=== PATIENT | female | born 1935 ===

== ENCOUNTER 2021-09-11 12:44 | Outpatient (RCR) | payer MEDICARE, OTHER, SELFPAY | END 2021-09-23 09:24 | disposition home or self-care (01) | LOC: HO.WCC 12:44 | PROVIDERS: PCP Internal Medicine; Visit Provider Surgery | DX: Z09 Encounter for follow-up examination after completed treatment for conditions other than malignant neoplasm (principal); S81.812D Laceration without foreign body, left lower leg, subsequent encounter; I10 Essential (primary) hypertension; Z87.891 Personal history of nicotine dependence; Z92.3 Personal history of irradiation; Z95.2 Presence of prosthetic heart valve | CPT/HCPCS: 99213 ==

== ENCOUNTER 2021-09-23 12:07 | Emergency (ER) | payer MEDICARE, OTHER, SELFPAY ==
[2021-09-23 13:27] VITALS: BP 119/52; PULSE 78; RESP 16; TEMP 36.7; O2SAT 95; BMI 34.2
--- NOTE | 2021-09-23 13:37 | ED_ITS ---
HPI - Animal Bite General Chief Complaint: Animal Bite Stated Complaint: Dog bite Time Seen by Provider: 09/23/21 13:27 Source: patient Mode of arrival: ambulatory Limitations: no limitations History of Present Illness HPI narrative: Patient comes to the emergency room complaining of a dog bite to the left forearm. Patient states that the dog is her daughter's. Patient states that she dropped pills on the floor, patient was about to eat the medications. Therefore, she pushed the dog out of the way to avoid the dog from eating the pills. The dog turned and bit the patient. The patient and her daughter rep orts that the dog has bitten people before including the patient. Patient states that she is up-to-date with her tetanus shot. Related Data Previous Rx's Medication Instructions Recorded amoxicillin 500 mg-potassium 1 tab PO BID #14 tab 09/23/21 clavulanate 125 mg tablet (Augmentin) Allergies Allergy/AdvReac Type Severity Reaction Status Date / Time No Known Allergies Allergy Unverified 03/15/20 16:58 [No Known Allergies*] Review of Systems Review of Systems: Constitutional : No Weight loss, No Fever, No Chills, No Night Sweats, No Fatigue, No Malaise ENT/Mouth : No Hearing loss, No Ear Pain, No Nasal Congestion, No Sinus Pain, No Hoarseness, No sore throat, No Rhinorrhea, No Swallowing Difficulty Eyes: No Eye Pain, No Swelling, No Redness, No Foreign Body, No Discharge, No Vision Changes Cardiovascular : No Chest Pain, No SOB, No Dyspnea on Exertion, No Orthopnea, No Edema, No Palpitations Respiratory : No Cough, No Sputum, No Wheezing, No Smoke Exposure, No Dyspnea Gastrointestinal : No Nausea, No Vomiting, No Diarrhea, No Constipation, No abdominal Pain, No Hematochezia, No Melena Genitourinary : no irregular bleeding, No Dysuria, No Urinary Frequency, No Hematuria, No Urinary Incontinence, No Urgency, No Flank Pain, No Urinary Flow Changes, No Hesitancy Musculoskeletal : No joint pain, No Myalgias, No Joint Swelling Skin : Dog bite on the anterior and posterior aspect of the left forearm Neuro : No Weakness, No Numbness, No Paresthesias, No Loss of Consciousness, No Dizziness, No Headache Psych : No Anxiety/Panic, No Depression, No SI/HI/AH/VH, No Social Issues, Heme/Lymph: No Bruising, No Bleeding,No Lymphadenopathy Endocrine : No Polyuria, No Polydipsia, No Temperature Intolerance [facility] Past Medical History Medical History Atrial fibrillation Bladder cancer Sciatica Surgical History Heart valve replaced Social History Social History Advance Directives: No Advance Directives Information Provided: No Physical Exam ED Vital Signs: Vital Signs - 24 hr 09/23/21 13:27 Temperature 98.0 F Pulse Rate 78 Respiratory Rate 16 Blood Pressure 119/52 L Pulse Oximetry 95 BMI result Body Mass Index 34.2 Const Other: Appearance: Alert. Oriented X3. No acute distress. Eyes: Pupils equal, round and reactive to light. ENT: Pharynx normal. Hard of hearing Neck: Normal inspection. Neck supple. No lymph nodes noted. No crepitus CVS: Normal heart rate and rhythm. Pulses normal. Normal S1 and S2 Respiratory: No respiratory distress. Breath sounds normal. No Wheezing. No rales Abdomen: Soft and nontender. No rigidity. No distention. Skin: Skin warm and dry. On the anterior aspect of the left forearm there is a 6 cm dog bite, muscle is visible, does not penetrate the muscle. There is a small hematoma underneath the muscle. On the dorsal aspect there are multiple skin tears Extremities: No lower extremity edema. No Lacerations. No Rash. Patient is able to open and close all fingers in the hand, flex extend, abduct and abduct. The bite does not affect tendons, did not penetrate the muscle tissue Neuro: Oriented X 3. No motor deficit. No sensory deficit. Moving all e xtremities. No slurred speech. CN 2 through 12 grossly intact Psych: calm, cooperative, normal affect Course Course Course Narrative: I discussed with the patient that usually dog bites should not be sutured due to the risk of infection. However, the laceration is extensive. we are going to apply sutures with enough spaces for the wound to drain. Patient's arm was thoroughly rinsed with normal saline and Betadine. Three nonabsorbable sutures were applied. Three absorbable sutures were applied to the muscle . The muscle was covered with the skin flap which was not sutured. Only covered and Steri-Strips were placed. The dorsal aspect of the arm was covered with Steri-Strips, with enough space to allow drainage. Patient was given the 1st dose of Augmentin in the emergency room. Patient states she is up-to-date with her Tdap Procedures Laceration Laceration 1: Site: upper extremity Side (If applicable): right Size (cm): 6 Description: linear, flap, irregular and contaminated Depth: simple, single layer Local Anesthetic: lidocaine 2% and with epi Amount of anesthesia used (mL): 10 Pre-repair: wound explored, irrigated extensively and deep structures intact Skin layer closed with: nylon Size (cm): 3-0 Number of sutures: 3 Technique: simple, interrupted Subcutaneous layer closed with: vicryl Size: 3-0 Number of sutures: 3 Technique: simple, interrupted Size: 3-0 Discharge Plan Discharge Clinical Impression: Dog bite Patient Disposition: Home, Self-Care Instructions: Animal Bite (ED) Additional Instructions: The exterior sutures need to be removed in 7-10 days. The sutures underneath the skin flap will self resolve. If you see any signs of infection such as redness, pus drainage, significant pain, fever chills, please return to the emergency room. Please follow-up with your primary care physician tomorrow. If you have any worsening or new symptoms, please return to the emergency room or call 911 Prescriptions: New amoxicillin-pot clavulanate [Augmentin] 500-125 mg tablet 1 tab PO BID Qty: 14 0RF
[2021-09-23] MEDS: Lidocaine HCl 1%/Epi 1:100,000 20 ML VIAL INFILTRATI (13:45)
[2021-09-23] MEDS: Amoxicillin/Potassium Clav 875 MG TABLET PO (13:45)
--- NOTE | 2021-09-23 14:50 | PC.NURSE ---
LEFT FOREARM ANTERIOR AND POSTERIOR OPEN WOUND FROM DOG BITE, MD IRIZARRY USED SUTURES AND STERI STRIPS AFTER CLEANING OUT WOUNDS, NON STICK DRESSING APPLIED OVER BOTH SIDES OF LEFT FOREARM AND WRAPPED WITH GAUZE.
== END 2021-09-23 14:54 | disposition home or self-care (01) ==
PROVIDERS: Emergency Provider Emergency Medicine; PCP Internal Medicine
DX: S51.852A Open bite of left forearm, initial encounter (principal); W54.0XXA Bitten by dog, initial encounter; Y93.89 Activity, other specified; Y92.009 Unspecified place in unspecified non-institutional (private) residence as the place of occurrence of the external cause; Y99.9 Unspecified external cause status
CPT/HCPCS: 12032; 99283; 99284

== ENCOUNTER 2022-05-13 07:59 | Outpatient (RCR) | payer MEDICARE, OTHER, SELFPAY | END 2022-06-17 12:03 | disposition home or self-care (01) | LOC: HO.WCC 07:59 | PROVIDERS: PCP Physician Assistant Medical; Visit Provider Physician Assistant | DX: S81.811A Laceration without foreign body, right lower leg, initial encounter (principal); I48.91 Unspecified atrial fibrillation; E11.40 Type 2 diabetes mellitus with diabetic neuropathy, unspecified; E11.22 Type 2 diabetes mellitus with diabetic chronic kidney disease; I13.0 Hypertensive heart and chronic kidney disease with heart failure and stage 1 through stage 4 chronic kidney disease, or unspecified chronic kidney disease; N18.30 Chronic kidney disease, stage 3 unspecified; I50.9 Heart failure, unspecified; I87.2 Venous insufficiency (chronic) (peripheral); R60.0 Localized edema; Z87.891 Personal history of nicotine dependence; Z79.01 Long term (current) use of anticoagulants | CPT/HCPCS: 11042; 99212 ==

== ENCOUNTER 2022-06-28 15:07 | Emergency (ER) | payer MEDICARE, OTHER, SELFPAY ==
[2022-06-28 15:11] VITALS: BP 108/50; PULSE 85; RESP 18; TEMP 36.8; O2SAT 98; BMI 32.8
--- NOTE | 2022-06-28 15:24 | PC.NURSE ---
pt refusing ultrasound
--- NOTE | 2022-06-28 15:27 | ED_ITS ---
HPI - General Adult General Chief complaint: Wound/Laceration Stated complaint: wound check Time Seen by Provider: 06/28/22 15:26 Source: patient and family (daughter) Mode of arrival: ambulatory Limitations: no limitations History of Present Illness HPI narrative: Patient is an 86 year old assigned female at with a history of coumadin use presenting to the emergency department today with right lower leg bruising. Patient states that she got up in the middle of the night and bumped her rirght leg on a chair. Patient states that now she has this swelling / bruised area. Patient denies any dizziness, lightheadedness, abdominal pain, nausea, vomiting, fever, chills, blurry vision, double vision, loss of vision, chest pain, difficulty breathing, shortness of breath, back pain, night sweats, pain with urination, increased urinary frequency, increased urinary urgency, blood in her urine or stool, syncope or a near syncopal episode, bowel incontinence, bladder incontinence, bowel retention, bladder retention, or any other complaints at this time. Onset (ago): day(s) Location: right and lower extremity Radiation: non-radiation Severity: mild Severity scale (1-10): 2 Relieving factors: none Exacerbating factors: none Associated symptoms: denies other symptoms Treatments prior to arrival: none Related Data Previous Rx's Medication Instructions Recorded amoxicillin 500 mg-potassium 1 tab PO BID #14 tabs 09/23/21 clavulanate 125 mg tablet (Augmentin) Allergies Allergy/AdvReac Type Severity Reaction Status Date / Time Latex, Natural Rubber Allergy Intermediate Hives Verified 06/28/22 15:11 Review of Systems Constitutional: Constitutional: Reports no additional constitutional complaints, Denies chills, Denies fever(s) and Denies night sweats Eyes: Eyes: Reports no additional eye complaints, Denies blurry vision, Denies change in vision, Denies diplopia, Denies eye discharge, Denies loss of vision and Denies eye pain ENT: Denies dizziness Cardiovascular: Cardiovascular: Reports no additional cardiovascular complaint s, Denies chest pain, Denies lightheadedness, Denies Loss of Consciousness and Denies dyspnea Respiratory: Respiratory: Reports no additional respiratory complaints and Denies dyspnea Gastrointestinal: Gastrointestinal: Reports no additional gastrointestinal complaints, Denies abdominal pain, Denies melena, Denies hematochezia, Denies change in bowel habits and Denies change in stool character Genitourinary: Genitourinary: Denies hematuria, Denies urinary frequency, Denies dysuria, Denies urinary incontinence, Denies urinary hesitancy and Denies urinary urgency Musculoskeletal: Musculoskeletal: Reports no additional musculoskeletal complaints, Denies numbness and Denies tingling Comments: right lower leg swelling Neurologic: Denies dizziness, Denies loss of vision, Denies numbness and Denies tingling Psychiatric: Psychiatric: Reports no additional psychiatric complaints Endocrine: Endocrine: Reports no additional endocrine complaints Hematologic/Lymphatic: Hematologic/Lymphatic: Reports no additional hematologic/lymphatic complaints Allergic/Immunologic: Allergic/Immunologic: Reports no additional allergic/immunologic complaints [facility] Past Medical History Attestation statement: The following information was validated with the patient. Source: old records reviewed, obtained from family (patient's daughter) and nursing notes reviewed Medical History Atrial fibrillation Bladder cancer Sciatica Surgical History Heart valve replaced Social History Social History Advance Directives: No Advance Directives Information Provided: Yes Physical Exam ED Vital Signs: Vital Signs - 24 hr 06/28/22 15:11 Temperature 98.3 F Pulse Rate 85 Respiratory Rate 18 Blood Pressure 108/50 L Pulse Oximetry 98 Oxygen Delivery Method Room Air BMI result Body Mass Index 32.8 Const General: cooperative, no acute distress, alert and awake Nutritional Appearance: well nourished Orientation/consciousness: patient oriented x3 Limitations: no limitations [facility] Head: Yes normal to inspection and Yes atraumatic Ears: hearing grossly normal bilaterally and external ears normal General nose exam: Normal external nose present, no nasal discharge noted and no epistaxis Face and sinus: Yes normal facial exam, No abrasion and No laceration Mouth: Normal oral and palatal mucosa present, no drooling and no muffled voice Eyes General: appearance normal, both eyes and all related structures Periorbital: periorbital findings normal Eyelids: Yes eyelids normal Conjunctivae: conjunctivae normal Pupils: Equal, round and reactive pupils present EOM: EOMs intact bilaterally Neck Neck: Yes normal visual inspection, Yes full ROM and Yes no lymphadenopathy Chest Chest palpation & inspection: normal inspection of the chest Resp Effort & Inspection: normal respiratory effort and able to speak in complete sentences Auscultation: clear to auscultation bilaterally Cardio Rate: regular rate Rhythm: regular rhythm GI Inspection: Yes normal to inspection Neuro General: patient oriented x3 and moves all extremities Cranial nerves: Yes Equal, round and reactive pupils present Cognition (Neuro): normal cognition Motor exam (neuro): 5/5 motor strength present throughout Sensory Exam: Normal double simultaneous stimulation for sensation Coordination: [id number] test normal Extrem Other: hematoma to the right anterior lower leg General: Yes full ROM and Yes capillary refill normal Psych Appearance: grossly normal Mental Status: mental status grossly normal Affect: normal affect Attitude: cooperative Thought process: Normal thought process present Thought content: Normal thought content present Insight: Good insight present (Psych) Medical Decision Making Medical Decision Making MDM Narrative: Patient is an 86 year old assigned female at with a history of coumadin use presenting to the emergency department today with a right lower leg hematoma. Patient's physical exam showed a small hematoma to the right anterior lower leg. Patient refused any imaging. I placed a pressure bandage on the hematoma. I explained my physical exam findings to the patient and the patient's daughter. I answered all questions asked by the patient and the patient's daughter. I stressed the importance of the patient taking her medication as prescribed. I stressed the importance of the patient following up with her primary care provider. I stressed the importance of the patient returning to the emergency department immediately if her symptoms were to worsen or if she were to develop any dizziness, shortness of breath, difficulty breathing, chest pain, blurry vision, loss of vision, nausea, vomiting, abdominal pain, fever, chills, back pain, or any other complaints. Patient and the patient's daughter verbalized agreement and understanding with this treatment plan and discharge. Differential Diagnosis Differential Diagnoses: The differential diagnosis associated with the presentation includes hematoma Independent Historian Clinical information obtained from an independent historian. History obtained from or confirmed by: Other (patient's daughter) Discharge Plan Discharge Clinical Impression: Hematoma Patient Disposition: Home, Self-Care Instructions: Hematoma (ED) Additional Instructions: Follow up with your primary care provider and wound care. Return to the emergency department immediately if your symptoms worsen or if you develop any dizziness, shortness of breath, difficulty breathing, chest pain, blurry vision, loss of vision, nausea, vomiting, abdominal pain, fever, chills, back pain, or any other complaints. Prescriptions: No Action amoxicillin-pot clavulanate [Augmentin] 500-125 mg tablet 1 tab PO BID Qty: 14 0RF Interventions: ED Discharge Assessment Last Done: 06/28/22 15:27 Discharge Date/Time: 06/28/22 15:37 Print Language: Yakut
== END 2022-06-28 15:37 | disposition home or self-care (01) ==
PROVIDERS: Emergency Provider Emergency Medicine
DX: S80.11XA Contusion of right lower leg, initial encounter (principal); W22.03XA Walked into furniture, initial encounter; I48.91 Unspecified atrial fibrillation; C67.9 Malignant neoplasm of bladder, unspecified; Z95.4 Presence of other heart-valve replacement; Z79.01 Long term (current) use of anticoagulants; Y93.9 Activity, unspecified; Y92.013 Bedroom of single-family (private) house as the place of occurrence of the external cause; Y99.9 Unspecified external cause status
CPT/HCPCS: 99282

== ENCOUNTER 2022-07-02 08:43 | Outpatient (RCR) | payer MEDICARE, OTHER, SELFPAY | END 2022-09-25 15:10 | disposition home or self-care (01) | LOC: HO.WCC 08:43 | PROVIDERS: PCP Physician Assistant Medical; Visit Provider Surgery | DX: E11.622 Type 2 diabetes mellitus with other skin ulcer (principal); L97.812 Non-pressure chronic ulcer of other part of right lower leg with fat layer exposed; E11.42 Type 2 diabetes mellitus with diabetic polyneuropathy; I87.2 Venous insufficiency (chronic) (peripheral); Z79.2 Long term (current) use of antibiotics; Z79.01 Long term (current) use of anticoagulants; Z79.899 Other long term (current) drug therapy; Z87.891 Personal history of nicotine dependence | CPT/HCPCS: 10140; 11042; 99212; 99213 ==

== ENCOUNTER 2022-10-05 12:11 | Emergency (ER) | payer MEDICARE, OTHER, SELFPAY ==
--- NOTE | ~2022-10-05 | XR_ITS ---
EXAMINATION:XR knee LT 3V CLINICAL INFORMATION: Reason for Exam fall and knee injury COMPARISON: None available at the time of this dictation. TECHNIQUE: Frontal and lateral views acquired FINDINGS: BONES: No fracture or dislocation is present. JOINTS: There is total knee replacement prosthesis device, both femoral and tibial component of which is properly positioned maintaining normal alignment's. No radiologic evidence of device loosening. Patella properly positioned. SOFT TISSUE: Normal XR/XR knee LT 3V IMPRESSION: Status post total knee replacement. The prosthesis is stable. No fracture.
--- NOTE | ~2022-10-05 | CT_ITS ---
CT head/brain wo IV con CLINICAL INFORMATION: Reason for Exam fall and head injury COMPARISON: No prior CT scan available for comparison. TECHNIQUE: Department standard protocol. This CT examination was performed using dose optimization techniques as appropriate, variously including the following: *Automated exposure control *Adjustment of mA and/or kV according to patient size (this includes techniques or standardized protocols for targeted exams where dose is matched to indication/reason for exam; i.e. extremities or head) *Use of iterative reconstruction technique DLP: 673 mGy-cm FINDINGS: CEREBRAL HEMISPHERES: There is no evidence of intra-axial or extra-axial mass, hemorrhage or acute infarct. BRAIN PARENCHYMA: Deep white matter and paraventricular hypoattenuation, nonspecific; most likely changes secondary to chronic ischemia due to microvascular angiopathy. SUBDURAL SPACE: No bleed. BASAL GANGLIA AND PINEAL GLAND: Unremarkable VENTRICLES: Symmetric and normal in size. CEREBELLUM AND BRAINSTEM: No space-occupying mass, hemorrhage or acute infarct. CEREBELLOPONTINE ANGLES: No lesion found. ORBITS: No intraorbital mass. VESSELS: Unremarkable SKULL BASE: Unremarkable INCLUDED SINUSES AT SKULL BASE: Clear SKULL AND SKIN: No fracture or bone lesion found. 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
--- NOTE | ~2022-10-05 | XR_ITS ---
EXAMINATION: XR HIP, LEFT , AP pelvis CLINICAL INFORMATION: Pain COMPARISON: None available at the time of this dictation. TECHNIQUE: Frontal and lateral views of the hip acquired. , AP pelvis FINDINGS: There is no evidence of acute fracture or dislocation. There are mild degenerative arthritic changes of the hip evident by sclerotic changes of the acetabular roof and narrowing of the joint space. Mild degenerative changes of the symphysis pubis. Mild degenerative changes of the SI joints. Adjacent pubic rami are intact. Surrounding soft tissues are unremarkable. XR/XR hip LT w PEL1V IMPRESSION: Mild degenerative arthritis. .
[2022-10-05 12:15] VITALS: BP 122/72; BP 144/78; PULSE 107; PULSE 87; RESP 18; O2SAT 100; O2SAT 95; BMI 32.3
[2022-10-05 12:23] VITALS: PULSE 105
--- NOTE | 2022-10-05 12:59 | ED.FALL ---
HPI - Fall General Chief Complaint: Fall Stated Complaint: FALL W/L KNEE LAC,+THINNERS, +CCOLLAR PER EMS Time Seen by Provider: 10/05/22 12:38 Source: patient and EMS Mode of arrival: EMS Limitations: no limitations History of Present Illness HPI Narrative: 86-year-old female came in by ambulance for evaluation after falling. Patient was at her kitchen tripped over her dog and fell down landing on her knees complaining of left knee pain and left knee laceration, patient not sure if she hit her head in the cabinet but no LOC, no neck pain, no other complaints. Patient is taking Coumadin for atrial fibrillation. Related Data Previous Rx's Medication Instructions Recorded amoxicillin 500 mg-potassium 1 tab PO BID #14 tabs 09/23/21 clavulanate 125 mg tablet (Augmentin) Allergies Allergy/AdvReac Type Severity Reaction Status Date / Time Latex, Natural Rubber Allergy Intermediate Hives Verified 06/28/22 15:11 Review of Systems Review of Systems: All other systems are reviewed and are negative Constitutional: Reports as per HPI and Reports no additional constitutional complaints Eyes: Reports as per HPI and Reports no additional eye complaints Reports system reviewed and no additional complaints, except as documented Cardiovascular: Reports as per HPI and Reports no additional cardiovascular complaints Respiratory: Reports as per HPI and Reports no additional respiratory complaints Gastrointestinal: Reports as per HPI and Reports no additional gastrointestinal complaints Genitourinary: Reports no additional female genitourinary complaints Musculoskeletal: Reports no additional musculoskeletal complaints Skin/Breast: Reports system reviewed and no additional complaints, except as docu Psychiatric: Reports no additional psychiatric complaints Endocrine: Reports no additional endocrine complaints Hematologic/Lymphatic: Reports no additional hematologic/lymphatic complaints Allergic/Immunologic: Reports no additional allergic/immunologic complaints Reports system reviewed and no additional complaints, except as documented and Reports Abnormal speech present [facility] Past Medical History Medical History Atrial fibrillation Bladder cancer Sciatica Surgical History Heart valve replaced Social History Social History Smoked in Last 30 Days: No Use of substances other than those prescribed or required for medical reasons: No Advance Directives: No Advance Directives Information Provided: No Physical Exam Vital Signs: Vital Signs: Last Vital Signs Pulse 98 10/05/22 14:14 Resp 16 10/05/22 14:14 BP 118/75 10/05/22 14:14 Pulse Ox 96 10/05/22 14:14 O2 Del Method Room Air 10/05/22 14:14 BMI result Body Mass Index 32.3 Vital signs have been reviewed as appeared to be correct. Blood pressure normal. Heart rate normal. Respiration rate normal. Temperature normal. Oxygen saturation normal. Appearance: Alert. Oriented X3. No acute distress. Head: Normal external exam. Normocephalic. Atraumatic. No Cohen signs noted. No raccoon eyes noted Eyes: PERRLA. EOMI. Conjunctiva and sclera normal. Eyelids normal. ENT: TM's Normal. Pharynx normal. Uvula midline. Moist mucous membranes. No trismus noted. No drooling noted. No muffled voice noted. Neck: Normal inspection. Neck supple. FROM. No adenopathy. Thyroid Normal. No meningeal signs. No neck mass noted. CVS: Normal heart rate and rhythm. Heart sound normal. No murmurs noted. Pulses normal throughout. Respiratory: No respiratory distress. Painless inspiration. Breath sounds normal. No wheezes/rales/rhonchi noted. Chest nontender. No accessory muscle usage noted or decreased air movement noted. Abdomen: Soft and nontender. Bowel sounds normal in all 4 quadrants. No distention noted. No organomegaly noted. No visible injury noted. Back: No CVA tenderness. Full range of motion noted. Skin: Skin warm and dry. Normal skin color. Normal skin turgor. No rashes/lesions/lacerations noted. Extremities: Left lower extremities exam: Mild tenderness to the left hip with no deformity and full range of motion, there is L-shaped skin tear on the anterior service of the left knee with missing superficial skin, no active bleeding. No deformity in the knee, full range of motion. Neuro: Oriented X 3. Cranial nerve exam: II-XII are grossly intact No motor deficit. No sensory deficit. Reflexes normal. Extrem: Other: Course Course Course Narrative: Left knee contusion with scant her that is not suturable, left hip contusion. INR 3.1 no further intervention. Chronic renal failure patient is aware of chronic renal failure and she sees sql report analyst as an outpatient has an appointment next week. (no old record in in [facility] to compared). Medications Administered Discontinued Medications Generic Name Dose Route Start Last Admin Trade Name Karla PRN Reason Stop Dose Admin Bacitracin 1 appl 10/05/22 14:58 10/05/22 15:04 Bacitracin Oint 0.9 Gm Packet TOPICAL 10/05/22 14:59 1 appl ONCE ONE Administration Protocol Medical Decision Making Differential Diagnosis Differential Diagnoses: The differential diagnosis associated with the presentation includes (Mechanical fall, left knee fracture, contusion, left hip fracture, intracranial bleed, hypocoagulopathy) Lab Data MDM Lab Attestation statement: I reviewed the patient's lab results. 10/05/22 13:26 10/05/22 13:26 Labs: Lab Results 10/05/22 10/05/22 10/05/22 Range/Units 13:26 13:26 13:26 WBC 11.3 H (4.8-10.8) X10*3/uL RBC 4.25 (4.20-5.50) X10*6/uL Hgb 11.6 L (12.0-16.0) g/dl Hct 37.3 (37.0-47.0) % MCV 87.8 (80.0-98.0) fL MCH 27.3 (27.0-33.0) pg MCHC 31.1 (31.0-35.0) g/dl RDW 16.1 H (11.0-16.0) % Plt Count 340 (160-400) X10*3/uL MPV 9.7 (9.4-12.3) fL Immature Gran % (Auto) 1.1 H (0.0-0.4) % Neut % (Auto) 77.9 H (45-73) % Lymph % (Auto) 12.9 L (20-40) % [place] % (Auto) 7.1 (2-11) % Eos % (Auto) 0.6 (0-4) % Baso % (Auto) 0.4 (0-2) % Lymph # (Auto) 1.5 (1.2-4.9) X10*3/uL [place] # (Auto) 0.8 (0.1-1.2) X10*3/uL Eos # (Auto) 0.1 (0.0-0.4) X10*3/uL Baso # (Auto) 0.0 (0.0-0.2) X10*3/uL Abs Immat Gran (auto) 0.12 H (0.00-0.03) X10*3/uL Absolute Neuts (auto) 8.9 H (2.0-8.3) x10*3/uL Absolute Nucleated RBC 0.000 (0.0-0.012) X10*3/uL Nucleated RBC % (auto) 0.0 (0.0-0.2) /100WBC PT 37.2 H (10.0-13.1) SEC INR 3.1 H (0.9-1.1) APTT 38.3 H (26.0-36.4) SEC Sodium 142 (135-145) mmol/L Potassium 4.7 (3.3-5.1) mmol/L Chloride 102 (96-108) mmol/L Carbon Dioxide 27 (22-29) mmol/L Anion Gap 18 (12-20) BUN 67 H (9-16) mg/dL Creatinine 2.35 H (0.5-1.4) mg/dL Estim Creat Clear Calc 18.4 Estimated GFR 20 Random Glucose 116 H (60-115) mg/dL Calcium 9.3 (8.4-10.2) mg/dL Independent Interpretation I performed an independent interpretation of an: Plain X-Ray (Left knee/left hip: No acute fracture or dislocation.) and CT Scan (Head: No acute pathology.) Radiology Impression Discussion of test interpretation with radiology: I have reviewed the radiologist's reading. Discharge Plan Discharge Clinical Impression: Fall, Contusion of knee, left, Contusion of hip, left, Skin tear of lower leg without complication Patient Disposition: Home, Self-Care Instructions: Contusion in Adults (ED) Prescriptions: No Action amoxicillin-pot clavulanate [Augmentin] 500-125 mg tablet 1 tab PO BID Qty: 14 0RF Referrals: [facility] [Primary Care Provider] -
[2022-10-05 13:30] LABS: MANUAL DIFF FLAG NO
[2022-10-05 13:31] LABS: Basophils Percent Auto 0.4 % (0-2); Eosinophils Absolute Auto 0.1 X10*3/uL (0.0-0.4); Eosinophils Percent Auto 0.6 % (0-4); Hematocrit 37.3 % (37.0-47.0); Hemoglobin 11.6 g/dl (12.0-16.0); Imm Gran Abs Auto 0.12 X10*3/uL (0.00-0.03); Imm Gran Pct Auto 1.1 % (0.0-0.4); Lymphocytes Absolute Auto 1.5 X10*3/uL (1.2-4.9); Lymphocytes Percent Auto 12.9 % (20-40); Mean Corpuscular HGB Conc 31.1 g/dl (31.0-35.0); Mean Corpuscular Hemoglobin 27.3 pg (27.0-33.0); Mean Corpuscular Volume 87.8 fL (80.0-98.0); Mean Platelet Volume 9.7 fL (9.4-12.3); Monocytes Absolute Auto 0.8 X10*3/uL (0.1-1.2); Monocytes Percent Auto 7.1 % (2-11); Neutrophils Absolute Auto 8.9 x10*3/uL (2.0-8.3); Neutrophils Percent Auto 77.9 % (45-73); Platelet Count 340 X10*3/uL (160-400); Red Blood Count 4.25 X10*6/uL (4.20-5.50); Red Cell Distribution Width 16.1 % (11.0-16.0); White Blood Count 11.3 X10*3/uL (4.8-10.8)
[2022-10-05 13:38] LABS: INTERNATIONAL NORM RATIO 3.1 (0.9-1.1); Prothrombin Time 37.2 SEC (10.0-13.1)
[2022-10-05 13:41] LABS: Partial Thromboplastin Time 38.3 SEC (26.0-36.4)
[2022-10-05 13:58] LABS: Anion Gap 18 (12-20); Blood Urea Nitrogen 67 mg/dL (9-16); Calcium 9.3 mg/dL (8.4-10.2); Chloride 102 mmol/L (96-108); Creatinine Clr Calc Pharmacy 18.4; Estimated Glomerular Filt Rate 20; Glucose Random 116 mg/dL (60-115); Potassium 4.7 mmol/L (3.3-5.1); Sodium 142 mmol/L (135-145)
[2022-10-05 14:04] LABS: Carbon Dioxide 27 mmol/L (22-29)
[2022-10-05 14:14] VITALS: BP 118/75; PULSE 98; RESP 16; O2SAT 96
[2022-10-05] MEDS: Bacitracin Oint 0.9 GM PACKET 1 APPL TOPICAL (15:04)
--- NOTE | 2022-10-05 15:06 | PC.NURSE ---
No acute changes. Neuros remain intact. Left knee being dressed by salud and Dr Hernandez at this time. Daughter remains at bedside discussing discharge instructions.
== END 2022-10-05 15:41 | disposition home or self-care (01) ==
PROVIDERS: Emergency Provider Emergency Medicine
DX: S81.012A Laceration without foreign body, left knee, initial encounter (principal); S80.02XA Contusion of left knee, initial encounter; R51.9 Headache, unspecified; M25.562 Pain in left knee; M25.552 Pain in left hip; W01.190A Fall on same level from slipping, tripping and stumbling with subsequent striking against furniture, initial encounter; Y93.9 Activity, unspecified; Y92.000 Kitchen of unspecified non-institutional (private) residence as the place of occurrence of the external cause; Y99.9 Unspecified external cause status; Z79.899 Other long term (current) drug therapy; Z79.01 Long term (current) use of anticoagulants
CPT/HCPCS: 36415; 70450; 73502; 73562; 80048; 85025; 85610; 85730; 99284

== ENCOUNTER 2022-11-19 09:52 | Outpatient (RCR) | payer MEDICARE, OTHER, SELFPAY | END 2023-04-14 10:13 | disposition home or self-care (01) | LOC: HO.WCC 09:52 | PROVIDERS: Visit Provider Surgery | DX: S81.011D Laceration without foreign body, right knee, subsequent encounter (principal); I87.2 Venous insufficiency (chronic) (peripheral); Z79.01 Long term (current) use of anticoagulants; Z79.899 Other long term (current) drug therapy; Z87.891 Personal history of nicotine dependence | CPT/HCPCS: 11042; 11045; 97597; 99212; 99213 ==

== ENCOUNTER 2023-01-22 15:50 | Emergency (ER) | payer MEDICARE, OTHER, SELFPAY ==
--- NOTE | ~2023-01-22 | CT_ITS ---
EXAMINATION: CT HEAD WITHOUT CONTRAST CT CERVICAL SPINE WITHOUT CONTRAST CLINICAL INFORMATION: 87-year-old female with neck and head trauma COMPARISON: CT head from 10/05/2022 TECHNIQUE: CT of the head and cervical spine were performed without intravenous contrast. Multiplanar reformats were rendered and reviewed. This CT examination was performed using dose optimization techniques as appropriate, variously including the following: *Automated exposure control *Adjustment of mA and/or kV according to patient size (this includes techniques or standardized protocols for targeted exams where dose is matched to indication/reason for exam; i.e. extremities or head) *Use of iterative reconstruction technique DLP: 1003 mGy-cm. FINDINGS: CT head: No intracranial hemorrhage, large infarction, or mass lesion is seen. No extra-axial collection is appreciated. The ventricles are normal in size and configuration without evidence of hydrocephalus. There are patchy periventricular white matter changes as a sequela of microangiopathy with lacunar infarct seen in the left internal capsular. Paranasal sinuses demonstrate small mucous retention cyst in the left maxillary sinus and deviation of the septum to the right with a spur. There is mild mucosal thickening of frontal sinuses. Mastoids are well aerated. The small extra-axial calcified meningioma in the left parietal lobe, measured 0.8 cm not associated with mass effect or edema. CT cervical spine: There are multilevel degenerative changes in cervical spine with grade 1 anterior listhesis of C3 over C4 but no fractures or subluxations. There is no spinal canal stenosis. The craniocervical junction is normal. Thyroid gland is unremarkable. Lung apices are normal. CT/CT cervical spine wo IV con IMPRESSION: CT head: No acute intracranial finding. Small meningioma in the left parietal region. CT cervical spine: Multilevel degenerative changes in cervical spine without fracture or spinal canal stenosis
--- NOTE | ~2023-01-22 | XR_ITS ---
EXAMINATION: XR KNEE, RIGHT CLINICAL INFORMATION: Right knee pain with laceration. COMPARISON: None available. TECHNIQUE: Four views of the right knee. FINDINGS: The patient is status post right knee arthroplasty showing good anatomic alignment and no evidence for hardware malfunction. There is no acute fracture. The soft tissues show mild swelling. XR/XR knee RT 4V IMPRESSION: Mild soft tissue swelling without acute underlying osseous or hardware abnormality.
--- NOTE | ~2023-01-22 | XR_ITS ---
EXAMINATION: XR ELBOW, RIGHT CLINICAL INFORMATION: Right elbow pain status post trauma. COMPARISON: None available. TECHNIQUE: AP, lateral, and oblique views of the right elbow. FINDINGS: There is no acute fracture or dislocation. The joint spaces are unremarkable. There is no joint effusion. Minimal linear calcification at the triceps insertion on the posterior olecranon margin. Mild soft tissue swelling is seen posteriorly. XR/XR elbow RT min 3V IMPRESSION: Mild soft tissue swelling posteriorly could be secondary to trauma or bursitis. Correlate with physical exam.
[2023-01-22 16:03] VITALS: BP 112/60; PULSE 77; O2SAT 96
[2023-01-22 16:27] VITALS: BP 106/61; PULSE 89; RESP 18; TEMP 36.6; O2SAT 96; BMI 29.1
[2023-01-22 16:47] LABS: MANUAL DIFF FLAG NO
[2023-01-22 16:48] LABS: Basophils Absolute Auto 0.1 X10*3/uL (0.0-0.2); Basophils Percent Auto 0.9 % (0-2); Eosinophils Absolute Auto 0.2 X10*3/uL (0.0-0.4); Hematocrit 32.2 % (37.0-47.0); Hemoglobin 9.6 g/dl (12.0-16.0); Imm Gran Abs Auto 0.02 X10*3/uL (0.00-0.03); Imm Gran Pct Auto 0.3 % (0.0-0.4); Lymphocytes Absolute Auto 1.4 X10*3/uL (1.2-4.9); Lymphocytes Percent Auto 19.7 % (20-40); Mean Corpuscular HGB Conc 29.8 g/dl (31.0-35.0); Mean Corpuscular Volume 87.3 fL (80.0-98.0); Mean Platelet Volume 10.4 fL (9.4-12.3); Monocytes Absolute Auto 0.9 X10*3/uL (0.1-1.2); Monocytes Percent Auto 13.4 % (2-11); Neutrophils Absolute Auto 4.4 x10*3/uL (2.0-8.3); Neutrophils Percent Auto 62.7 % (45-73); Platelet Count 219 X10*3/uL (160-400); Red Blood Count 3.69 X10*6/uL (4.20-5.50); Red Cell Distribution Width 17.2 % (11.0-16.0)
[2023-01-22 16:54] LABS: INTERNATIONAL NORM RATIO 2.6 (0.9-1.1); Prothrombin Time 31.3 SEC (11.1-13.3)
[2023-01-22 17:05] LABS: Anion Gap 19 (12-20); Blood Urea Nitrogen 65 mg/dL (9-16); Calcium 9.4 mg/dL (8.4-10.2); Carbon Dioxide 25 mmol/L (22-29); Chloride 103 mmol/L (96-108); Creatinine Clr Calc Pharmacy 18.5; Estimated Glomerular Filt Rate 21; Glucose Random 103 mg/dL (60-115); Potassium 3.9 mmol/L (3.3-5.1); Sodium 143 mmol/L (135-145)
--- NOTE | 2023-01-22 17:23 | ED.FALL ---
HPI - Fall General Chief Complaint: Fall Stated Complaint: FALL + BLOOD THINNERS LAC TO R KNEE Time Seen by Provider: 01/22/23 16:05 Source: patient Mode of arrival: EMS Limitations: no limitations History of Present Illness HPI Narrative: Patient is an 87-year-old female who presents emergency department via EMS for evaluation after mechanical fall. She states that she was getting out of the car and she tripped. States that she fell onto the concrete. Denies any head strike or loss of consciousness. She sustained abrasions to the right elbow and foot which are painful, and a laceration to the right knee which is painful. Decreased AROM to the right knee. Full AROM to the right elbow. Denies any head or neck pain. Denies dizziness or lightheadedness. She reports that she is on warfarin for AFib, states INR within the past week was 2.7. Reports tetanus vaccination is up-to-date within the past 5 years. Related Data Previous Rx's Medication Instructions Recorded amoxicillin 500 mg-potassium 1 tab PO BID #14 tabs 09/23/21 clavulanate 125 mg tablet (Augmentin) cephalexin 500 mg capsule 500 mg PO QID 7 days #28 caps 01/22/23 Allergies Allergy/AdvReac Type Severity Reaction Status Date / Time Latex, Natural Rubber Allergy Intermediate Hives Verified 06/28/22 15:11 Review of Systems Review of Systems: Constitutional: No fever. No chills. No weakness. No fatigue. Eye: No swelling. No redness. Skin: No rash. No itching. Cardiovascular: No chest pain. No chest pressure. No palpitations. No pedal edema. Respiratory: No shortness of breath. No cough. No sputum production. Gastrointestinal: No nausea. No vomiting. No diarrhea. No abdominal pain. No blood in stool. Genitourinary: No burning micturition. No urinary frequency. No incontinence. Neurologic: No headache. No dizziness. No pre-syncope/ syncope. No unilateral weakness. No ataxia. No numbness. No tingling. No change in bowel or bladder control. Musculoskeletal: No muscle pain. No back pain. No joint pain. No stiffness. Yes all other systems are reviewed and are negative PMFSH Past Medical History Attestation statement: The following information was validated with the patient. Source: old records reviewed Medical History Atrial fibrillation Bladder cancer Sciatica Surgical History Heart valve replaced Social History Social History Advance Directives: Yes Advance Directives Information Provided: No Advance Directives on File: No Physical Exam Vital Signs: Vital Signs: Last Vital Signs Temp 98.2 F 01/22/23 19:30 Pulse 92 01/22/23 19:30 Resp 18 01/22/23 19:30 BP 114/55 L 01/22/23 19:30 Pulse Ox 96 01/22/23 19:30 O2 Del Method Room Air 01/22/23 19:30 BMI result Body Mass Index 29.1 Appearance: Alert.?Oriented to person, place and time. No acute distress.?Normal affect. Head: Normocephalic atraumatic Eyes: Pupils equal, round and reactive to light.? EOMI. ENT: Pharynx normal.??Dentition normal. Neck: Normal inspection.? Neck supple.??No midline cervical spine tenderness, step-offs, deformities. Back: No midline thoracic or lumbar spine tenderness, step-offs, deformities. CVS: Heart sounds normal. Normal heart rate and rhythm.? Pulses normal.?? Respiratory: No respiratory distress.? Lung sounds clear to auscultation bilaterally?? Abdomen: Soft and non-tender. Normoactive bowel sounds. Skin: Skin warm and dry.? Normal skin color.? Extremities: No lower extremity edema.? No calf ttp. Right knee with decreased AROM, linear laceration as per photograph below with controlled bleeding. Right elbow with full AROM, superficial abrasions are present. Neuro: Moves all extremities spontaneously. Sensation intact bilaterally. CN II-XII intact. No focal neuro deficits. Ambulates with normal steady gait. Medications Administered Discontinued Medications Generic Name Dose Route Start Last Admin Trade Name Freq PRN Reason Stop Dose Admin Bacitracin 1 appl 01/22/23 16:17 01/22/23 17:55 Bacitracin Oint 0.9 Gm Packet TOPICAL 01/22/23 16:18 1 appl ONCE ONE Administration Protocol Cephalexin HCl 500 mg 01/22/23 21:45 07/27/23 21:48 Cephalexin 500 Mg Capsule PO 01/22/23 21:46 500 mg ONCE ONE Administration Lidocaine HCl 10 ml 01/22/23 19:33 01/22/23 19:45 Lidocaine Hcl 1 % Mpf 5 Ml Vial SUBCUT 01/22/23 19:34 10 ml ONCE ONE Administration Procedures Laceration Laceration 1: Site: lower extremity Side (If applicable): right Size (cm): 173 Description: linear and flap Depth: simple, single layer Local Anesthetic: lidocaine 1% Amount of anesthesia used (mL): 15 Pre-repair: wound explored, irrigated extensively and deep structures intact Skin layer closed with: nylon Size (cm): 4-0 Number of sutures: 19 Technique: simple, interrupted Medical Decision Making Medical Decision Making MDM Narrative: Patient is an 87-year-old female with past medical history of atrial fibrillation on warfarin, CHF, CKD, bladder cancer Presenting to emergency department for evaluation after a mechanical fall. Denies any precipitating symptoms, reports that she tripped on the door frame of the car when getting out, uses a walker at baseline. She denies any head strike or loss of consciousness. There are no focal neurological deficits upon examination. Given her age obtained basic labs including INR, CT of the head and cervical spine to assure no ICH/SDH. XR imaging of the right elbow and right knee to evaluate for fracture or dislocation. Abrasions were cleansed with normal saline, topical bacitracin was applied. Right knee laceration amenable to suture closure as per procedure note and patient tolerated procedure well. Differential Diagnosis Differential Diagnoses: The differential diagnosis associated with the presentation includes (As noted above) Lab Data MDM Lab Attestation statement: I reviewed the patient's lab results. CBC reveals baseline anemia, does not meet transfusion criteria. BMP consistent with CKD. INR 2.6, within therapeutic range 01/22/23 16:43 01/22/23 16:43 Labs: Lab Results 01/22/23 01/22/23 01/22/23 Range/Units 16:43 16:43 16:43 WBC 7.0 (4.8-10.8) X10*3/uL RBC 3.69 L (4.20-5.50) X10*6/uL Hgb 9.6 L (12.0-16.0) g/dl Hct 32.2 L (37.0-47.0) % MCV 87.3 (80.0-98.0) fL MCH 26.0 L (27.0-33.0) pg MCHC 29.8 L (31.0-35.0) g/dl RDW 17.2 H (11.0-16.0) % Plt Count 219 D (160-400) X10*3/uL MPV 10.4 (9.4-12.3) fL Immature Gran % (Auto) 0.3 (0.0-0.4) % Neut % (Auto) 62.7 (45-73) % Lymph % (Auto) 19.7 L (20-40) % [place] % (Auto) 13.4 H (2-11) % Eos % (Auto) 3.0 (0-4) % Baso % (Auto) 0.9 (0-2) % Lymph # (Auto) 1.4 (1.2-4.9) X10*3/uL Montgomery # (Auto) 0.9 (0.1-1.2) X10*3/uL Eos # (Auto) 0.2 (0.0-0.4) X10*3/uL Baso # (Auto) 0.1 (0.0-0.2) X10*3/uL Abs Immat Gran (auto) 0.02 (0.00-0.03) X10*3/uL Absolute Neuts (auto) 4.4 (2.0-8.3) x10*3/uL Absolute Nucleated RBC 0.000 (0.0-0.012) X10*3/uL Nucleated RBC % (auto) 0.0 (0.0-0.2) /100WBC PT 31.3 H (11.1-13.3) SEC INR 2.6 H (0.9-1.1) Sodium 143 (135-145) mmol/L Potassium 3.9 (3.3-5.1) mmol/L Chloride 103 (96-108) mmol/L Carbon Dioxide 25 (22-29) mmol/L Anion Gap 19 (12-20) BUN 65 H (9-16) mg/dL Creatinine 2.18 H (0.5-1.4) mg/dL Estim Creat Clear Calc 18.5 Estimated GFR 21 Random Glucose 103 (60-115) mg/dL Calcium 9.4 (8.4-10.2) mg/dL Independent Interpretation I performed an independent interpretation of an: Plain X-Ray (I have personally interpreted XR imaging of the right elbow and right knee and agree with radiologist impression; no acute fracture or dislocation is present.) Radiology Impression Discussion of test interpretation with radiology: I have reviewed the radiologist's reading. Radiologist Impression: XR/XR knee RT 4V IMPRESSION: Mild soft tissue swelling without acute underlying osseous or hardware abnormality. XR/XR elbow RT min 3V IMPRESSION: Mild soft tissue swelling posteriorly could be secondary to trauma or bursitis. Correlate with physical exam. CT/CT head/brain wo IV con IMPRESSION: ? CT head: ? No acute intracranial finding. Small meningioma in the left parietal region. ? ? CT cervical spine: Multilevel degenerative changes in cervical spine without fracture or spinal canal stenosis Independent Historian Clinical information obtained from an independent historian. History obtained from or confirmed by: Other (Daughter is present who confirms history) External Record Review External record reviewed: Prior outpatient labs Prescription Management I considered prescription management with: Antibiotic Discharge Plan Discharge Clinical Impression: Fall, Contusion of knee, left, Laceration of knee Patient Disposition: Home, Self-Care Instructions: Laceration (ED), Contusion in Adults (ED) Additional Instructions: As discussed, the stitches will need to be removed in 10-14 days. You may return back to emergency department to have these removed and/or follow-up with your primary care provider. Please return back to emergency department any new or worsening symptoms or concerns. If you develop increasing pain, swelling, pus-like drainage, uncontrolled bleeding, worsening or severe pain, numbness or tingling to the extremity, inability to bear weight, fevers or chills please return back to the emergency department. Antibiotics may have an interaction with your warfarin. Please follow-up closely with your Coumadin clinic for monitoring of your INR levels. Prescriptions: New cephalexin 500 mg capsule 500 mg PO QID 7 Days Qty: 28 0RF No Action amoxicillin-pot clavulanate [Augmentin] 500-125 mg tablet 1 tab PO BID Qty: 14 0RF Referrals: Char Rojo PA [Primary Care Provider] - Interventions: ED Discharge Assessment Last Done: 01/22/23 21:55 Discharge Date/Time: 01/22/23 21:56
[2023-01-22] MEDS: Bacitracin Oint 0.9 GM PACKET 1 APPL TOPICAL (17:55)
[2023-01-22 19:30] VITALS: BP 114/55; PULSE 92; RESP 18; TEMP 36.8; O2SAT 96
[2023-01-22] MEDS: Lidocaine HCl 1 % MPF 5 ML VIAL 10 ML SUBCUT (19:45)
--- NOTE | 2023-01-22 20:00 | PC.NURSE ---
provider in room suturing patients laceration now. lidocaine pulled from pyxis and administered by provider. daughter at bedside. will ctm.
--- NOTE | 2023-01-22 21:34 | MHC.EDTECH ---
Applied bacitracin ointment to patients right elbow, right knee, and second toe of the right foot. badges were then applied. patient resting comfortably at this time.
[2023-01-22] MEDS: cephALEXin 500 MG CAPSULE PO (21:48)
== END 2023-01-22 21:56 | disposition home or self-care (01) ==
PROVIDERS: Nurse Practitioner Family; Emergency Provider Internal Medicine; PCP Physician Assistant Medical
DX: S81.011A Laceration without foreign body, right knee, initial encounter (principal); S50.311A Abrasion of right elbow, initial encounter; S80.01XA Contusion of right knee, initial encounter; R51.9 Headache, unspecified; M54.2 Cervicalgia; M25.561 Pain in right knee; M25.521 Pain in right elbow; I48.91 Unspecified atrial fibrillation; W01.10XA Fall on same level from slipping, tripping and stumbling with subsequent striking against unspecified object, initial encounter; Y93.9 Activity, unspecified; Y92.9 Unspecified place or not applicable; Y99.9 Unspecified external cause status; Z79.899 Other long term (current) drug therapy; Z79.01 Long term (current) use of anticoagulants
CPT/HCPCS: 12037; 36415; 70450; 72125; 73080; 73564; 80048; 85025; 85610; 99284

== ENCOUNTER 2023-10-08 10:30 | Outpatient (RCR) | payer MEDICARE, OTHER, SELFPAY | END 2023-11-04 08:00 | disposition home or self-care (01) | LOC: HO.WCC 10:30 | PROVIDERS: Visit Provider Surgery | DX: S81.812A Laceration without foreign body, left lower leg, initial encounter (principal); C67.9 Malignant neoplasm of bladder, unspecified; I13.0 Hypertensive heart and chronic kidney disease with heart failure and stage 1 through stage 4 chronic kidney disease, or unspecified chronic kidney disease; N18.4 Chronic kidney disease, stage 4 (severe); I50.9 Heart failure, unspecified; Z87.891 Personal history of nicotine dependence; Z92.21 Personal history of antineoplastic chemotherapy; Z79.899 Other long term (current) drug therapy | CPT/HCPCS: 11042; 99212 ==

== ENCOUNTER 2023-10-21 16:42 | Emergency (ER) | payer MEDICARE, OTHER, SELFPAY ==
--- NOTE | 2023-10-21 17:08 | ED_ITS ---
HPI - General Adult General Chief complaint: Recheck/Abnormal Lab/Rx Stated complaint: sent from cancer center, needs transfusion Time Seen by Provider: 10/21/23 17:14 Source: patient and family (Daughter, Sandra) Mode of arrival: ambulatory Limitations: no limitations History of Present Illness HPI narrative: 87-year-old female history of sciatica, bladder cancer, atrial fibrillation, congestive heart failure, heart valve replacement who was sent to the emergency department by her urologist for evaluation of anemia. The patient sees at the [facility] at [facility]. Patient states that she has been having hematuria and had a cystoscopy with possible ablation 2-3 weeks prior. She also had chemotherapy instilled into her bladder. She states that over the last 2 weeks she has been very tired and lost her energy. She followed up with her urologist today who was concerned that the patient's blood pressure was low and that she was looking pale. She had outpatient blood work and was contacted and told that her hemoglobin and hematocrit were 7.5 and 24.1 and that she should go to the hospital for transfusions Patient states she has occasional blood per rectum secondary to hemorrhoids but has not noticed any dark black stools or large bloody stools. She states that she has had very poor appetite and has not been eating and drinking well. She denied fever, chills, cough, nausea, vomiting. She states she does have shortness of breath and dyspnea on exertion over the last 2 weeks. She denied dysuria but states she has frequency because she is on diuretics. Related Data Previous Rx's ?Medication ?Instructions ?Recorded amoxicillin 500 mg-potassium 1 tab PO BID #14 tabs 09/23/21 clavulanate 125 mg tablet (Augmentin) cephalexin 500 mg capsule 500 mg PO QID 7 days #28 caps 01/22/23 Allergies Allergy/AdvReac Type Severity Reaction Status Date / Time Latex, Natural Rubber Allergy Intermediate Hives Verified 10/21/23 17:13 Review of Systems 2 Review of Systems: Yes all other systems are reviewed and are negative [facility] Past Medical History [facility] Narrative: Social history: She denies tobacco, alcohol and drug use. Medical History Atrial fibrillation Bladder cancer Sciatica Surgical History Heart valve replaced Social History Social History Smoked in Last 30 Days: No Use of substances other than those prescribed or required for medical reasons: No Advance Directives: Yes Advance Directives Information Provided: No Advance Directives on File: No Do you have a plan to hurt others: No Plan Physical Exam ED Vital Signs: Vital Signs - 24 hr 10/21/23 17:09 10/21/23 19:00 10/21/23 20:20 Temperature 96.0 F L 97.1 F Pulse Rate 64 63 69 Respiratory Rate 20 12 16 Blood Pressure 99/50 L 104/49 L 96/50 L Pulse Oximetry 100 100 99 Oxygen Delivery Method Room Air Room Air Room Air 10/21/23 20:24 10/21/23 20:40 Temperature 97.1 F 96.6 F L Pulse Rate 66 69 Respiratory Rate 10 L 11 L Blood Pressure 96/50 L 102/51 L Pulse Oximetry Oxygen Delivery Method BMI result Body Mass Index 24.9 Vital signs were normal. Exam: General: Awake, alert in no distress, pale appearing Head: Normocephalic, atraumatic EENT: PERRL, Lids normal, sclera normal, conjunctiva normal, nose normal , ears normal, throat without erythema or exudates Neck: Supple, no adenopathy Lung: breath sounds symmetric, no wheezing, rales or rhonchi Chest: symmetric movement, nontender Heart: regular rate and rhythm, normal S1, S2 no murmurs or rubs Abdomen: soft, non-tender, nondistended, normal bowel sounds Rectal: No external hemorrhoids noted, normal sphincter tone, loose brown Back: no vertebral tenderness, no CVAT Extremities: no deformities, moves all extremities symmetrically Neuro: Awake, alert, oriented, normal speech Psych: Pleasant, cooperative Course Course Course Narrative: This is an RME: Additional HPI, ROS, PE not included below will be deferred to primary provider. 87 yo female with pmhx of bladder cancer, valve replacement, HTN, presents from cancer center after labs this morning were abnormal. Hgb 7.5 reports dizziness, weakness and shortness of breath BP 82/24, repeat 99/50 Patient to go straight back to a room Medical Decision Making Medical Decision Making MDM Narrative: 87-year-old female history of sciatica, bladder cancer, atrial fibrillation, congestive heart failure, heart valve replacement who was sent to the emergency department by her urologist for evaluation of symptomatic anemia with weakness, dyspnea on exertion , shortness of and lack of energy. Patient is being treated for her bladder cancer by [facility] and had a cystoscopy 3 weeks prior with an ablation for hematuria. Patient notes occasional bloody stool secondary to hemorrhoids but has not had any dark stools or black stools . Patient has had poor appetite. Initial blood pressure was low but the patient states that her systolic blood pressures are usually in the 90 range. Rectal exam revealed stool that was loose, brown and Hemoccult negative. Differential diagnosis: ?Includes but is not limited to GI bleed, hematuria, malnutrition, iron deficiency, electrolyte abnormalities, anemia Following evaluation was ordered: CBC, CMP, PT/INR, occult stool testing, type and screen Patient was initially treated with the following: Transfused 2 units of packed red blood cell each unit over 3-4 hours Course: My independent interpretation patient's laboratory evaluation is as follows: H&H 7.5 and 22.9 compared to an H&H of 9.6 and 32.2 from 01/22/2023. INR is elevated 3.5, patient states that she tries to keep your INR between 2 and 3.0 therefore she was recommended to not take her warfarin this evening and to talk to her provider that his managing her warfarin therapy to decide when she needs to restart it. The patient's BUN and creatinine were elevated 151 and 5.95 which is compared to 01/02/2023 65 and 2.18. Patient's glucose was elevated 138. Given the significant change in the patient's BUN creatinine I suspect that her anemia may be secondary to her kidney failure and lack of her erythropoietin. I did discuss this with the patient and the patient's daughter. The patient will only be transfused 1 unit of packed red blood cells and then discharged home. Admission/Observation Consideration of admission/observation: Escalation of care including admission/observation considered Lab Data MDM Lab Attestation statement: I reviewed the patient's lab results. 10/21/23 17:41 10/21/23 18:25 Labs: Lab Results 10/21/23 10/21/23 10/21/23 Range/Units 17:41 18:25 18:33 WBC 6.8 (4.8-10.8) X10*3/uL RBC 2.61 L D (4.20-5.50) X10*6/uL Hgb 7.5 L D (12.0-16.0) g/dl Hct 22.9 L D (37.0-47.0) % MCV 87.7 (80.0-98.0) fL MCH 28.7 (27.0-33.0) pg MCHC 32.8 (31.0-35.0) g/dl RDW 17.8 H (11.0-16.0) % Plt Count 221 (160-400) X10*3/uL MPV 11.2 (9.4-12.3) fL Immature Gran % (Auto) 0.4 (0.0-0.4) % Neut % (Auto) 81.1 H (45-73) % Lymph % (Auto) 11.2 L (20-40) % [place] % (Auto) 6.0 (2-11) % Eos % (Auto) 1.0 (0-4) % Baso % (Auto) 0.3 (0-2) % Lymph # (Auto) 0.8 L (1.2-4.9) X10*3/uL [place] # (Auto) 0.4 (0.1-1.2) X10*3/uL Eos # (Auto) 0.1 (0.0-0.4) X10*3/uL Baso # (Auto) 0.0 (0.0-0.2) X10*3/uL Abs Immat Gran (auto) 0.03 (0.00-0.03) X10*3/uL Absolute Neuts (auto) 5.5 (2.0-8.3) x10*3/uL Absolute Nucleated RBC 0.070 H (0.0-0.012) X10*3/uL Nucleated RBC % (auto) 1.0 H (0.0-0.2) /100WBC PT 42.3 H D (11.1-13.3) SEC INR 3.5 H (0.9-1.1) Sodium 141 (135-145) mmol/L Potassium 4.7 (3.3-5.1) mmol/L Chloride 107 (96-108) mmol/L Carbon Dioxide 19 L (22-29) mmol/L Anion Gap 20 (12-20) BUN 151 H (9-16) mg/dL Creatinine 5.95 H* (0.5-1.4) mg/dL Estim Creat Clear Calc 6.0 Estimated GFR 7 Random Glucose 138 H (60-115) mg/dL Calcium 7.9 L D (8.4-10.2) mg/dL Total Bilirubin 0.4 (0.0-1.0) mg/dL AST 16 (5-31) U/L ALT 12 (0-31) U/L Alkaline Phosphatase 69 (39-117) U/L Total Protein 7.1 (6.5-8.0) g/dL Albumin 3.4 L (3.5-5.0) g/dL Stool Occult Blood NEGATIVE (NEGATIVE) Blood Type A Positive Antibody Screen NEGATIVE Crossmatch See Detail Independent Historian Clinical information obtained from an independent historian. History obtained from or confirmed by: Other (Daughter) Chronic Conditions Patient?s care impacted by: Other (Bladder cancer, kidney failure) Critical Care Time Critical Care Time Critical Care Time: Yes Total Critical Care Time: 35 Attestation: Critical Care: The patient was critically ill with a high probability of imminent or life threatening deterioration. I spent greater than 30 minutes of discontinuous time evaluating the patient,delivering critical care at the bedside, discussing and evaluating pertinent data with consultants. Critical care time does not include time spent performing separately billable procedures or teaching. Total time spent performing critical care was 35 minutes. Discharge Plan Discharge Clinical Impression: Anemia, Chronic kidney disease Patient Disposition: Home, Self-Care Instructions: Chronic Kidney Disease (ED) Additional Instructions: Your rectal exam was negative for blood in your stool which is reassuring. Your hematocrit and hemoglobin were low at 7.5 and 22.9. Your BUN and creatinine were significantly elevated at 151 and 5.95. Your potassium was normal at 4.7 which is reassuring. Given your high BUN and creatinine I suspect that your anemia is caused by your kidneys and lack of erythropoietin which is a hormone that your kidney produces to stimulate the production of red blood cells. I want you to follow-up with your flight operations manager to see if you would benefit from injections of Epogen which is similar to the erythropoietin hormone. You were given 1 unit of packed red blood cells here in the emergency department. Given your kidney disease I felt that 2 units might cause you to go into congestive heart failure. Your INR was 3.5 therefore I do not want you to take warfarin/Coumadin tonight and you should talk to the provider that manages this medication to determine when you should get retested in restart this medication. Follow-up with your doctor in 2 days. Please return to the emergency department if your symptoms get worse or if you develop any symptoms that are concerning to you. Prescriptions: No Action amoxicillin-pot clavulanate [Augmentin] 500-125 mg tablet 1 tab PO BID Qty: 14 0RF cephalexin 500 mg capsule 500 mg PO QID 7 Days Qty: 28 0RF Print Language: Tamazight
[2023-10-21 17:09] VITALS: BP 99/50; PULSE 64; RESP 20; TEMP 35.6; O2SAT 100; BMI 24.9
[2023-10-21 17:47] LABS: MANUAL DIFF FLAG NO
[2023-10-21 17:49] LABS: Basophils Percent Auto 0.3 % (0-2); Eosinophils Absolute Auto 0.1 X10*3/uL (0.0-0.4); Hematocrit 22.9 % (37.0-47.0); Hemoglobin 7.5 g/dl (12.0-16.0); Imm Gran Abs Auto 0.03 X10*3/uL (0.00-0.03); Imm Gran Pct Auto 0.4 % (0.0-0.4); Lymphocytes Absolute Auto 0.8 X10*3/uL (1.2-4.9); Lymphocytes Percent Auto 11.2 % (20-40); Mean Corpuscular HGB Conc 32.8 g/dl (31.0-35.0); Mean Corpuscular Hemoglobin 28.7 pg (27.0-33.0); Mean Corpuscular Volume 87.7 fL (80.0-98.0); Mean Platelet Volume 11.2 fL (9.4-12.3); Monocytes Absolute Auto 0.4 X10*3/uL (0.1-1.2); Neutrophils Absolute Auto 5.5 x10*3/uL (2.0-8.3); Neutrophils Percent Auto 81.1 % (45-73); Platelet Count 221 X10*3/uL (160-400); Red Blood Count 2.61 X10*6/uL (4.20-5.50); Red Cell Distribution Width 17.8 % (11.0-16.0); White Blood Count 6.8 X10*3/uL (4.8-10.8)
[2023-10-21 17:54] LABS: INTERNATIONAL NORM RATIO 3.5 (0.9-1.1); Prothrombin Time 42.3 SEC (11.1-13.3)
[2023-10-21 18:40] LABS: OBS Int Ctl Valid YES; OBS1 NEGATIVE (NEGATIVE)
[2023-10-21 19:00] VITALS: BP 104/49; PULSE 63; RESP 12; O2SAT 100
[2023-10-21 19:01] LABS: Alanine Aminotransferase 12 U/L (0-31); Albumin Level 3.4 g/dL (3.5-5.0); Alkaline Phosphatase 69 U/L (39-117); Anion Gap 20 (12-20); Aspartate Amino Transferase 16 U/L (5-31); Bilirubin Total 0.4 mg/dL (0.0-1.0); Blood Urea Nitrogen 151 mg/dL (9-16); Calcium 7.9 mg/dL (8.4-10.2); Carbon Dioxide 19 mmol/L (22-29); Chloride 107 mmol/L (96-108); Estimated Glomerular Filt Rate 7; Glucose Random 138 mg/dL (60-115); Potassium 4.7 mmol/L (3.3-5.1); Sodium 141 mmol/L (135-145); Total Protein 7.1 g/dL (6.5-8.0)
[2023-10-21 20:20] VITALS: BP 96/50; PULSE 69; RESP 16; TEMP 36.2; O2SAT 99
[2023-10-21 20:24] VITALS: BP 96/50; PULSE 66; RESP 10; TEMP 36.2
[2023-10-21 20:40] VITALS: BP 102/51; PULSE 69; RESP 11; TEMP 35.9
[2023-10-21 23:40] VITALS: BP 105/69; PULSE 66; RESP 12
[2023-10-22 00:57] VITALS: BP 105/69; PULSE 66; RESP 12; TEMP 36.7; O2SAT 99
== END 2023-10-22 00:32 | disposition home or self-care (01) ==
PROVIDERS: Physician Assistant; Emergency Provider Emergency Medicine Emergency Medical Services; PCP Internal Medicine
DX: D64.9 Anemia, unspecified (principal); I12.9 Hypertensive chronic kidney disease with stage 1 through stage 4 chronic kidney disease, or unspecified chronic kidney disease; N18.9 Chronic kidney disease, unspecified; C67.9 Malignant neoplasm of bladder, unspecified; I48.91 Unspecified atrial fibrillation; Z95.2 Presence of prosthetic heart valve; Z79.01 Long term (current) use of anticoagulants
CPT/HCPCS: 36415; 36430; 80053; 82272; 85025; 85610; 86850; 86900; 86901; 86923; 99284; 99285; P9016